=== PATIENT | male | born 1955 | race African-American/Black ===

== ENCOUNTER 2025-05-31 12:22 | Inpatient (IN) ==
--- NOTE | 2025-05-31 12:35 | Emergency Department Note ---
Impression & Plan Syncope, Syncope due to orthostatic hypotension, CLEMENTINE (acute kidney injury) ED Provider Note NAME: ALICIA POLANCO AGE: 70 SEX: M : 1955 ARRIVES VIA: Ambulance INFORMANT: Patient, EMS ED PROVIDER(S): Manjeet Lanza DO CHIEF COMPLAINT: Syncope HPI: The patient is a 70-year-old male who presented to the emergency department by ambulance. The patient states he had a syncopal episode prior to arrival. He states he was eating a sandwich. He felt as though the sandwich may have gotten caught while he was trying to swallow up. He went to get a glass of water. After he got the glass of water he passed out. The patient went from a bending over position to a standing position when he got dizzy passed out. He denies having any chest pain. He denies having any nausea or vomiting. He has had no abdominal pain. Patient denies having any fever. He states he still feels off and does not feel back to his normal self. There is no reported seizure. Patient denies having any black or bloody stool. ROS: See above HPI for pertinent positives & negatives. A total of 10 systems reviewed and were otherwise negative. PAST MEDICAL HISTORY: See Below PAST SURGICAL HISTORY: See Below FAMILY HISTORY: See Below SOCIAL HISTORY: See Below HOME MEDICATIONS: See Below ALLERGIES: See Below VITALS: See Below PHYSICAL EXAMINATION: GENERAL: Patient is awake alert in no acute distress patient is resting comfortably and showing no signs of anxiety EYES: The conjunctivae are clear. The pupils are round and reactive. EARS, NOSE, MOUTH AND THROAT: The nose is without any evidence of any deformity. NECK: The neck is nontender and supple. RESPIRATORY: Normal respiratory effort is noted there is no evidence of wheezing rhonchi or rales CARDIOVASCULAR: Regular rate and rhythm noted there no murmurs rubs or gallops normal S1 normal S2. GASTROINTESTINAL: The abdomen is soft. Abdomen is nontender. MUSCULOSKELETAL/EXTREMITIES: There is no evidence of gross deformity full range of motion is noted in the hips and shoulders. SKIN: There is no obvious evidence of any rash. There are no petechiae, pallor or cyanosis noted. NEUROLOGIC: Patient is awake alert and oriented x3. Strength is symmetric. Speech was clear. There is no facial droop. MEDICAL DECISION MAKING: The patient is a 70-year-old male who presented to the emergency department for an evaluation after having a syncopal episode. The patient was treated with IV fluids in the emergency department. Vital signs did reveal orthostatic hypotension. I discussed the patient's laboratory and radiographic studies with him and his significant other. The patient admitted that he was not eating and drinking as well as usual. It is possible this represents some degree of dehydration. Given the patient's findings I do not feel that he would be a good candidate for outpatient management at this time. For this reason I [facility] have agreed to evaluate the patient in the emergency department for further management and disposition. Triage Nursing notes reviewed. Prior medical records reviewed Vital Signs: reviewed and remarkable for no significant abnormalities Differential diagnosis: Vasovagal event, dehydration, infection, hypoglycemia, electrolyte abnormalities, cardiac sources, intracerebral event, pulmonary embolism, seizure, toxicologic, neurologic, as well as other pathologies. ER treatment provided: See below Diagnostics interpreted by me: ECG: EKG was obtained in the emergency department. My interpretation is normal sinus rhythm at 88 bpm. There is no ectopy. There is no acute ST segment abnormalities noted. This was compared to a tracing from February 03, 2010. No changes were noted. Cardiac Monitoring: An order was placed for continuous cardiac monitoring. The monitor shows a rate of 85 bpm with sinus rhythm. Laboratory studies: As stated above and show below. Imaging studies: See below. Radiographic imaging was reviewed by myself Consultation(s): I discussed this case with Nikki who [facility]. Past Med/Surg History Problem List (Updated 05/31/25 @ 14:04 by Manjeet Lanza DO) CLEMENTINE (acute kidney injury) (Acute) Syncope due to orthostatic hypotension (Acute) Syncope (Acute) Medical History GERD (gastroesophageal reflux disease) Hypertension Social History Smoking Status: Never smoker Preferred Language: Korean Feels Safe at Home: Yes Allergies Allergies Allergy/AdvReac Type Severity Reaction Status Date / Time No Known Allergies Allergy Unverified 02/03/10 14:58 Home Meds Home Medications Medication Instructions Recorded Confirmed aspirin 81 mg tablet,delayed 81 mg PO DAILY ##0 02/05/10 05/31/25 release acetaminophen 500 mg tablet 500 mg PO UD PRN Pain ##0 04/05/11 05/31/25 cyclosporine 0.09 % eye drops in a 1 drp ophthalmic (eye) BID 05/31/25 05/31/25 dropperette (Cequa) eszopiclone 2 mg tablet (Lunesta) 2 mg PO DAILY 05/31/25 05/31/25 finasteride 5 mg tablet 5 mg PO QAM 05/31/25 05/31/25 gabapentin 300 mg capsule 600 mg PO BID 05/31/25 05/31/25 glipizide 5 mg tablet 5 mg PO DAILY 05/31/25 05/31/25 lifitegrast 5 % eye drops in a 1 drp ophthalmic (eye) Q12H 05/31/25 05/31/25 dropperette (Xiidra) linaclotide 145 mcg capsule 145 mcg PO DAILY 05/31/25 05/31/25 (Linzess) losartan 100 mg tablet 100 mg PO DAILY 05/31/25 05/31/25 nifedipine 60 mg tablet,extended 60 mg PO DAILY 05/31/25 05/31/25 release omeprazole 40 mg capsule,delayed 40 mg PO DAILY 05/31/25 05/31/25 release rosuvastatin 5 mg tablet 5 mg PO DAILY 05/31/25 05/31/25 sildenafil 50 mg tablet 5 - 10 mg PO DAILY PRN Erectile 05/31/25 05/31/25 Dysfunction tadalafil 5 mg tablet 5 mg PO DAILY 05/31/25 05/31/25 tamsulosin 0.4 mg capsule 0.4 mg PO DAILY 05/31/25 05/31/25 venlafaxine 150 mg 150 mg PO DAILY 05/31/25 05/31/25 capsule,extended release 24 hr Results & Data (ED) Vital Signs Vital Signs - 24 hr 05/31/25 12:30 05/31/25 12:32 05/31/25 12:32 Temperature 36.5 C Temperature Source Oral Pulse Rate - Lying 72 Pulse Rate - Sitting 75 Pulse Rate - Standing 81 Pulse Rate 86 85 Pulse Rhythm Regular Pulse Strength Normal Respiratory Rate 22 Respiratory Effort / Characteristics Spontaneous Respiratory Depth Normal Blood Pressure - Lying 97/56 L Blood Pressure - Sitting 98/59 L Blood Pressure- Standing 113/58 L Blood Pressure 108/61 Blood Pressure Mean 76 Blood Pressure Position Lying Pulse Oximetry 98 Oxygen Delivery Method Room Air Sepsis Recent Fever Within 48 Hours No Sepsis New/Unexplained Change in Mental Status N/A Sepsis Action Taken by Nursing No Action Required 05/31/25 12:40 Temperature Temperature Source Pulse Rate - Lying Pulse Rate - Sitting Pulse Rate - Standing Pulse Rate Pulse Rhythm Pulse Strength Respiratory Rate Respiratory Effort / Characteristics Respiratory Depth Blood Pressure - Lying Blood Pressure - Sitting Blood Pressure- Standing Blood Pressure Blood Pressure Mean Blood Pressure Position Pulse Oximetry 98 Oxygen Delivery Method Room Air Sepsis Recent Fever Within 48 Hours Sepsis New/Unexplained Change in Mental Status Sepsis Action Taken by Assisted Medications Current Medication List: was personally reviewed by me Laboratory Data Attestation: I reviewed the patient's lab results. 05/31/25 12:27 05/31/25 12:27 Lab Results 05/31/25 05/31/25 Range/Units 12:27 13:45 WBC 5.37 (4.8-10.8) K/ul RBC 4.57 L (4.70-6.10) M/uL Hgb 13.4 L (14.0-18.0) g/dL Hct 39.2 L (42.0-52.0) % MCV 85.8 (80.0-100.0) fL MCH 29.3 (25.0-34.0) pg MCHC 34.2 (32.0-36.0) g/dL RDW Std Deviation 43.1 (36.4-46.3) fL RDW Coeff of Ben 13.9 (11.5-14.5) % Plt Count 183 (130-400) K/uL MPV 10.7 (9.4-12.4) fL Immature Gran % (Auto) 0.2 % Neut % (Auto) 55.6 % Lymph % (Auto) 27.2 % [place] % (Auto) 10.6 % Eos % (Auto) 6.0 % Baso % (Auto) 0.4 % Neut # (Auto) 2.99 (1.40-6.50) K/uL Lymph # (Auto) 1.46 (1.20-3.40) K/uL [place] # (Auto) 0.57 (0.11-0.59) K/uL Eos # (Auto) 0.32 (0.00-0.50) K/uL Baso # (Auto) 0.02 (0.00-0.20) K/uL Immature Gran # (Auto) 0.01 (0.01-0.20) K/uL PT 11.0 (9.0-12.0) Seconds INR 1.0 (0.9-1.1) APTT 25 (21-31) Seconds PTT Ratio 0.9 Sodium 140 (136-145) mmol/L Potassium 4.1 (3.5-5.1) mmol/L Chloride 110 H (98-107) mmol/L Carbon Dioxide 22 (21-32) mmol/L Anion Gap 8 (3-11) BUN 17 (6-23) mg/dl Creatinine 1.94 H (0.6-1.4) mg/dl Est Cr Clr Drug Dosing 42.6 ml/min eGFR 36.33 BUN/Creatinine Ratio 8.8 L (10-20) Glucose 162 H (70-99(Fasting)) mg/dl Calcium 8.4 L (8.6-10.3) mg/dl Magnesium 2.2 (1.7-2.4) mg/dl Total Bilirubin 0.6 (0.2-1.0) mg/dl AST 17 (13-39) U/L ALT 17 (7-52) U/L Alkaline Phosphatase 68 (34-104) U/L Total Creatine Kinase 176 (30-223) U/L Troponin I High Sens 6.0 (0-20) pg/ml Total Protein 7.1 (6.0-8.3) gm/dl Albumin 4.2 (3.4-5.0) gm/dl Globulin 2.9 (2.5-4.0) gm/dl Albumin/Globulin Ratio 1.4 (0.9-2) Lipase 34 (11-82) U/L TSH 1.086 (0.300-4.500) uIu/ml Urine Color Yellow Urine Appearance Clear (Clear) Urine pH 7.5 (4.5-7.5) Ur Specific [place] 1.015 (1.000-1.030) Urine Protein Negative (Negative) Urine Glucose (UA) Negative (Negative) Urine Ketones Trace H (Negative) Urine Blood Negative (Negative) Urine Nitrite Negative (Negative) Urine Bilirubin Negative (Negative) Urine Urobilinogen Negative (Negative) Ur Leukocyte Esterase Negative (Negative) Urine Comment Administered Medications Discontinued Medications Sodium Chloride (Nss) 500 mls @ 999 mls/hr IV .Q31M MAXI Stop: 05/31/25 13:15 Last Infusion: 05/31/25 13:54 Dose: Infused Documented By: [facility] [place] Admin: 05/31/25 12:46 Dose: 999 mls/hr Documented By: [facility] [place] Sodium Chloride (Nss) 500 mls @ 999 mls/hr IV .Q31M ONE Stop: 05/31/25 13:40 Last Admin: 05/31/25 13:55 Dose: 999 mls/hr Documented By: [facility] [place] Imaging Data Attestation: I personally reviewed and interpreted this imaging study as follows: My Impression: 1 view chest x-ray was obtained in the emergency department. My interpretation is no free air or definite infiltrate, final report below. Radiologist's Impression: Cervical Spine CT 05/31/25 12:32 Exam: CT of the cervical spine. Exam reason: Syncope. Technique: Multiple transvaginal images of the cervical spine were obtained and also reconstructed in coronal and sagittal planes. Findings: There is no evidence of acute fracture or subluxation. Alignment is normal. There are large bridging osteophytes noted at multiple contiguous levels extending from at least C2-C6. These are present both anteriorly and posteriorly. The dens is in satisfactory alignment with C1 and the lateral masses are unremarkable. Impression: 1. No acute abnormalities in the cervical spine. 2. Multiple large bridging osteophytes noted throughout the cervical spine. This is concerning for diffuse idiopathic skeletal hyperostosis. Electronically signed by Lobo Latham 05-31-2025 13:35 PM Chest X-Ray 05/31/25 12:32 Exam: AP Portable Chest Exam reason: Syncope Comparison: No prior examinations available for comparison Technique: A single AP portable view of the chest was obtained Findings: The lungs are well-expanded. No focal areas of consolidation are identified. The cardiac and mediastinal silhouettes are within normal limits. There is no pneumothorax and no acute bony abnormalities are seen. Impression: No acute cardiopulmonary abnormalities Electronically signed by Lobo Latham 05-31-2025 13:[address] 05/31/25 12:32 Exam: CT of the head without contrast. Exam reason: Syncope. Comparison: No prior examinations available for comparison. Technique: Multiple sequential contiguous slices through the calvarium were obtained. Findings: The ventricles are normal in size and configuration. There is no evidence of intracranial hemorrhage, mass effect or midline shift. No acute bony abnormalities are identified. The sinuses are clear. The orbits and orbital contents are unremarkable. Impression: 1. No evidence of acute intracranial abnormality. Electronically signed by Yeison Lobo 05-31-2025 13:34 PM Discharge Plan Visit Data Chief Complaint: Syncope Stated Complaint: SYNCOPE ED Provider: Manjeet Lanza Discharge Problem: Syncope, Syncope due to orthostatic hypotension, CLEMENTINE (acute kidney injury) Patient Disposition: Being Evaluated by Hospitalist Condition: Fair Forms Stand Alone Forms: My [facility] [place] [employer] Prescriptions Prescriptions: No Action aspirin [Aspir-81] 81 mg Tablet,Delayed Release (Dr/Ec) 81 mg PO DAILY Qty: 0 Patient Comments: 05/31- otc unable to verify acetaminophen [Tylenol Ex Str Rapid Release] 500 mg Tablet 500 mg PO UD PRN (Reason: Pain) Qty: 0 Patient Comments: 05/31- otc unable to verify sildenafil 50 mg tablet 5 - 10 mg PO DAILY PRN (Reason: Erectile Dysfunction) venlafaxine 150 mg capsule,extended release 24hr 150 mg PO DAILY omeprazole 40 mg capsule,delayed release(DR/EC) 40 mg PO DAILY tamsulosin 0.4 mg capsule 0.4 mg PO DAILY gabapentin 300 mg capsule 600 mg PO BID nifedipine 60 mg tablet extended release 60 mg PO DAILY losartan 100 mg tablet 100 mg PO DAILY finasteride 5 mg tablet 5 mg PO QAM glipizide 5 mg tablet 5 mg PO DAILY rosuvastatin 5 mg tablet 5 mg PO DAILY tadalafil 5 mg tablet 5 mg PO DAILY eszopiclone [Lunesta] 2 mg tablet 2 mg PO DAILY Linzess 145 mcg capsule 145 mcg PO DAILY Xiidra 5 % dropperette 1 drp ophthalmic (eye) Q12H Patient Comments: last filled 02/12 90 day supply Cequa 0.09 % dropperette 1 drp ophthalmic (eye) BID Referrals Referrals: PCP,NO [Primary Care Provider] -
[2025-05-31 12:45] LABS: Hematocrit (blood only) 39.2 % (42.0-52.0); Hemoglobin 13.4 g/dL (14.0-18.0); Immature Granulocytes # (auto) 0.01 K/uL (0.01-0.20); Immature Granulocytes % (auto) 0.2 %; Mean Corpuscular Hemoglobin 29.3 pg (25.0-34.0); Mean Corpuscular Volume 85.8 fL (80.0-100.0); Platelet Count 183 K/uL (130-400); RDW Standard Deviation 43.1 fL (36.4-46.3); Red Blood Count 4.57 M/uL (4.70-6.10); White Blood Count 5.37 K/ul (4.8-10.8)
[2025-05-31] MEDS: SODIUM CHLORIDE 0.9% 500 ML IV SCH (12:46)
[2025-05-31 13:02] LABS: Alanine Aminotransferase 17.0 U/L (7-52); Albumin Globulin Ratio 1.4 (0.9-2); Albumin Level 4.2 gm/dl (3.4-5.0); Alkaline Phosphatase 68.0 U/L (34-104); Anion Gap 8.0 (3-11); Bilirubin,Total 0.6 mg/dl (0.2-1.0); Blood Urea Nitrogen 17.0 mg/dl (6-23); Calcium 8.4 mg/dl (8.6-10.3); Carbon Dioxide 22.0 mmol/L (21-32); Chloride 110.0 mmol/L (98-107); Creatine Kinase 176.0 U/L (30-223); Creatinine Clr Calc Pharmacy 42.6 ml/min; Globulin 2.9 gm/dl (2.5-4.0); Glucose 162.0 mg/dl (70-99(Fasting)); Lipase 34.0 U/L (11-82); Magnesium 2.2 mg/dl (1.7-2.4); Potassium 4.1 mmol/L (3.5-5.1); Sodium 140.0 mmol/L (136-145); Total Protein 7.1 gm/dl (6.0-8.3)
[2025-05-31 13:12] LABS: INR 1.0 (0.9-1.1); Partial Thromboplastin Time 25 Seconds (21-31); Prothrombin Time 11.0 Seconds (9.0-12.0)
[2025-05-31 13:19] LABS: Thyroid Stimulating Hormone 1.086 uIu/ml (0.300-4.500)
--- NOTE | 2025-05-31 13:27 | XRay Report ---
Exam: AP Portable Chest Exam reason: Syncope Comparison: No prior examinations available for comparison Technique: A single AP portable view of the chest was obtained Findings: The lungs are well-expanded. No focal areas of consolidation are identified. The cardiac and mediastinal silhouettes are within normal limits. There is no pneumothorax and no acute bony abnormalities are seen. Impression: No acute cardiopulmonary abnormalities Electronically signed by Lobo Latham 05-31-2025 13:26 PM
--- NOTE | 2025-05-31 13:34 | CT Scan Report ---
Exam: CT of the head without contrast. Exam reason: Syncope. Comparison: No prior examinations available for comparison. Technique: Multiple sequential contiguous slices through the calvarium were obtained. Findings: The ventricles are normal in size and configuration. There is no evidence of intracranial hemorrhage, mass effect or midline shift. No acute bony abnormalities are identified. The sinuses are clear. The orbits and orbital contents are unremarkable. Impression: 1. No evidence of acute intracranial abnormality. Electronically signed by Lobo Latham 05-31-2025 13:34 PM
--- NOTE | 2025-05-31 13:35 | CT Scan Report ---
Exam: CT of the cervical spine. Exam reason: Syncope. Technique: Multiple transvaginal images of the cervical spine were obtained and also reconstructed in coronal and sagittal planes. Findings: There is no evidence of acute fracture or subluxation. Alignment is normal. There are large bridging osteophytes noted at multiple contiguous levels extending from at least C2-C6. These are present both anteriorly and posteriorly. The dens is in satisfactory alignment with C1 and the lateral masses are unremarkable. Impression: 1. No acute abnormalities in the cervical spine. 2. Multiple large bridging osteophytes noted throughout the cervical spine. This is concerning for diffuse idiopathic skeletal hyperostosis. Electronically signed by Lobo Latham 05-31-2025 13:35 PM
[2025-05-31] MEDS: SODIUM CHLORIDE 0.9% 500 ML IV ONE (13:55)
[2025-05-31 13:58] LABS: Appearance Urine Clear (Clear); Glucose Urine UA Negative (Negative)
--- NOTE | 2025-05-31 14:10 | History & Physical Report ---
Date of Service May 31, 2025 Assessment & Plan (1) Syncope: (2) CKD (chronic kidney disease) stage 3, GFR 30-59 ml/min: (3) Hypertension: (4) T2DM (type 2 diabetes mellitus): (5) Obesity (BMI 30-39.9): (6) TRACEE treated with BiPAP: Plan This is a 70-year-old male who has significant past medical history of T2DM, HTN, TRACEE on BiPAP, GERD, gastroparesis, CKD stage III, BPH, polyneuropathy and obesity who presents to ED after episode of passing out prior to arrival. Pt reports symptomatic syncope with lightheaded/dizziness and feeling, "off," prior to event. He was standing at the refrigerator and went to go sit down on a chair when he fell forward onto the table. He believes he may have passed out for seconds. In ED work up unremarkable. Pt has CKD-3 with chronically elevated Cr ~ 1.8. In ED orthostatics were performed. His SBP was in the 90s lying and actually basil to 113 standing. He did have symptoms. He received 1.5L of fluids in ED. #Syncope ddx: orthostasis, autonomic neuropathy, hypovolemia, tachyarrythmia, bradyarrthmia admit to [facility] tele under observation monitor tele for any arrhythmias, if unremarkable will need ZIO arranged as outpt obtain echocardiogram hold antihypertensives losartan and nifedipine, pt does not monitor BP at home, and per chart review runs anywhere from 120s-150s systolic in clinic obtain orthostatics post IVF and BID TSH unremarkable --Head CT: unremarkable ECG NSR w/o ST ot T wave changes #CKD-3b baseline cr 1.8 follows [facility] bun/cr 17 and 1.94, clinically does not appear dry #T2DM a1c 6.2 12/2024 repeat a1c, hold glipizide diabetic diet and novolog SS #HTN hold losartan and nifedipine for now, monitor bp #TRACEE: chronic, stable, bipap at HS #Morbid obesity, BMI 35.6, encourage diet, lifestyle modifications #DVT ppx: SQ heparin FULL CODE PCP: Dr. Yudy Malik Dispo: admit to [facility] tele under obs Pt was seen and examined in collaboration with Dr. Arciniega, please see addendum I spent a total of 76 minutes coordinating, documenting and providing care for this patient excluding time spent in the performance of separately billed services or time spent by another provider/QHP. History of Present Illness Chief Complaint: passing out prior to arrival. Primary Care Provider: Yudy Malik This is a 70-year-old male who has significant past medical history of T2DM, HTN, TRACEE on BiPAP, GERD, gastroparesis, CKD stage III, BPH, polyneuropathy and obesity who presents to ED after episode of passing out prior to arrival. Patient's is at bedside who also helps elicit history. External chart review was performed. Pt was at the refrigerator getting some juice when his right arm started shaking. He states he felt, "off." The asked him if he was okay and he said, "I'm not sure." She asked him to come sit down and as he was making his way to the chair he fell forward into the table. Pt and believes he passed out for a few seconds. He recalls the events leading him to the table, but vaguely recalls anything after that. called 911. He does have hx of HTN and he did take his bp meds this a.m. He does not monitor his blood pressure on a regular basis. He reports prior to the event feeling dizzy/lightheaded. He has had similar episodes in the past where he would feel lightheaded and it would resolve immediately upon sitting down. He drinks ~ 2L of fluid a day. He has been taking his medicine. No recent weight loss, gain or illness noted. He denies f/c/s, chest pain, sob, palpitations, n/v/d, abd pain. He has issues with chronic constipation. Overall he has a good appetite. In ED pt was hemodynamically stable. he did have orthostatic vitals performed which his blood pressure was 97/56 lying in 113/58 standing. His heart rate fluctuated between 70 and 80. He received IVF and observation was recommended. Allergies Allergy/AdvReac Type Severity Reaction Status Date / Time No Known Allergies Allergy Unverified 02/03/10 14:58 Home Medications Medication Instructions Recorded Confirmed Type aspirin 81 mg tablet,delayed 81 mg PO DAILY ##0 02/05/10 05/31/25 History release acetaminophen 500 mg tablet 500 mg PO UD PRN Pain ##0 04/05/11 05/31/25 History albuterol sulfate 90 mcg/actuation 1 inh inhalation Q4H 05/31/25 05/31/25 History breath activated powder inhaler,sensor cholecalciferol (vitamin D3) 25 25 mcg PO DAILY 05/31/25 05/31/25 History mcg (1,000 unit) capsule (Vitamin D3) cyclosporine 0.09 % eye drops in a 1 drp ophthalmic (eye) BID 05/31/25 05/31/25 History dropperette (Cequa) eszopiclone 2 mg tablet (Lunesta) 2 mg PO HS 05/31/25 05/31/25 History finasteride 5 mg tablet 5 mg PO QAM 05/31/25 05/31/25 History fluticasone propionate 50 1 spray intranasal BID 05/31/25 05/31/25 History mcg/actuation nasal spray,suspension gabapentin 300 mg capsule 300 mg PO DAILY 05/31/25 05/31/25 History gabapentin 300 mg capsule 600 mg PO HS 05/31/25 05/31/25 History glipizide 5 mg tablet 5 mg PO DAILY 05/31/25 05/31/25 History linaclotide 145 mcg capsule 145 mcg PO DAILY 05/31/25 05/31/25 History (Linzess) losartan 100 mg tablet 100 mg PO DAILY 05/31/25 05/31/25 History nifedipine 60 mg tablet,extended 60 mg PO DAILY 05/31/25 05/31/25 History release omega 7-eal-rvk-fish oil 60 mg-90 1 cap PO DAILY 05/31/25 05/31/25 History mg-500 mg capsule (Fish Oil) omeprazole 40 mg capsule,delayed 40 mg PO DAILY 05/31/25 05/31/25 History release rosuvastatin 5 mg tablet 5 mg PO DAILY 05/31/25 05/31/25 History sildenafil 50 mg tablet 5 - 10 mg PO DAILY PRN Erectile 05/31/25 05/31/25 History Dysfunction tadalafil 5 mg tablet 5 mg PO DAILY 05/31/25 05/31/25 History tamsulosin 0.4 mg capsule 0.4 mg PO DAILY 05/31/25 05/31/25 History venlafaxine 150 mg 150 mg PO DAILY 05/31/25 05/31/25 History capsule,extended release 24 hr Past Med/Surg History Problem List (Updated 05/31/25 @ 15:21 by Nikki Acosta PA-C) CLEMENTINE (acute kidney injury) (Acute) Syncope due to orthostatic hypotension (Acute) Syncope (Acute) Medical History (Updated 05/31/25 @ 15:21 by Nikki Acosta PA-C) TRACEE treated with BiPAP Obesity (BMI 30-39.9) T2DM (type 2 diabetes mellitus) CKD (chronic kidney disease) stage 3, GFR 30-59 ml/min GERD (gastroesophageal reflux disease) Hypertension Surgical History (Updated 05/31/25 @ 14:56 by Nikki Acosta PA-C) Hx of hernia repair Hx of partial adrenalectomy left 2008 Family History Father Cancer Mother Stroke Social History (Updated 05/31/25 @ 14:56 by Nikki Acosta PA-C) Smoking Status: Never smoker Hx Alcohol Use: No Hx Substance Use: No Preferred Language: Mexican marital status: Current Living Situation: Spouse Feels Safe at Home: Yes Review of Systems Review of Systems: All systems reviewed & are unremarkable except as noted in HPI & below Physical Exam Physical Exam: Constitutional: WD/WN, vitals as above, NAD, sitting up in bed, pleasant, conversing easily Head: Normocephalic, Atraumatic Eyes: conjunctivae normal, anicteric sclerae, periorbital soft tissue edema ENMT: external ear and nose normal, oropharynx normal Neck: trachea midline, no thyromegaly normal visual inspection Respiratory: CTAB, no W/R/R, normal inspection, no accessory muscle use Cardiovascular: RRR, no murmur, no edema Chest: normal inspection of chest Abdomen: S, NT, ND, +BS x 4 Musculoskeletal: no cyanosis or clubbing, extremities AROM x 4 Skin: no rashes, warm and dry normal turgor Neurologic: no face palsy, no dysarthria CN's II-XI intact bilaterally and moves all extremities Psychiatric: A+Ox3, euthymic affect Results & Data Results & Data Vital Signs (Past 12 Hours) Vital Signs Temp Pulse Resp BP Pulse Ox O2 Del Method 05/31/25 12:40 98 Room Air 05/31/25 12:32 85 05/31/25 12:30 36.5 C 86 22 108/61 98 Room Air Laboratory Results I have independently reviewed and interpreted patient's admitting labs including CBC, CMP, PTT, PT/INR, mag and troponin. Diagnostic Findings Cervical Spine CT 05/31/25 12:32 Exam: CT of the cervical spine. Exam reason: Syncope. Technique: Multiple transvaginal images of the cervical spine were obtained and also reconstructed in coronal and sagittal planes. Findings: There is no evidence of acute fracture or subluxation. Alignment is normal. There are large bridging osteophytes noted at multiple contiguous levels extending from at least C2-C6. These are present both anteriorly and posteriorly. The dens is in satisfactory alignment with C1 and the lateral masses are unremarkable. Impression: 1. No acute abnormalities in the cervical spine. 2. Multiple large bridging osteophytes noted throughout the cervical spine. This is concerning for diffuse idiopathic skeletal hyperostosis. Electronically signed by Lobo Latham 05-31-2025 13:35 PM Chest X-Ray 05/31/25 12:32 Exam: AP Portable Chest Exam reason: Syncope Comparison: No prior examinations available for comparison Technique: A single AP portable view of the chest was obtained Findings: The lungs are well-expanded. No focal areas of consolidation are identified. The cardiac and mediastinal silhouettes are within normal limits. There is no pneumothorax and no acute bony abnormalities are seen. Impression: No acute cardiopulmonary abnormalities Electronically signed by Lobo Latham 05-31-2025 13:[address] 05/31/25 12:32 Exam: CT of the head without contrast. Exam reason: Syncope. Comparison: No prior examinations available for comparison. Technique: Multiple sequential contiguous slices through the calvarium were obtained. Findings: The ventricles are normal in size and configuration. There is no evidence of intracranial hemorrhage, mass effect or midline shift. No acute bony abnormalities are identified. The sinuses are clear. The orbits and orbital contents are unremarkable. Impression: 1. No evidence of acute intracranial abnormality. Electronically signed by Lobo Latham 05-31-2025 13:34 PM Medications Administered Medication List Discontinued Medications Sodium Chloride (Nss) 500 mls @ 999 mls/hr IV .Q31M MAXI Stop: 05/31/25 13:15 Last Infusion: 05/31/25 13:54 Dose: Infused Documented By: [facility] [place] Admin: 05/31/25 12:46 Dose: 999 mls/hr Documented By: lino Sodium Chloride (Nss) 500 mls @ 999 mls/hr IV .Q31M ONE Stop: 05/31/25 13:40 Last Admin: 05/31/25 13:55 Dose: 999 mls/hr Documented By: gina ECG Additional Comments: I have independently reviewed and interpreted patient's admitting EKG which revealed: 88, NSR, no st or t wave changes COVID-19 Results Results COVID-19 Adm Lab Results: 2 RBC 4.57 M/uL (4.70-6.10) L 05/31/25 WBC 5.37 K/ul (4.8-10.8) 05/31/25 Hgb 13.4 g/dL (14.0-18.0) L 05/31/25 Hct 39.2 % (42.0-52.0) L 05/31/25 Plt Count 183 K/uL (130-400) 05/31/25 Neutrophils (%) (Auto) 55.6 % 05/31/25 Lymphocytes (%) (Auto) 27.2 % 05/31/25 Monocytes # (Auto) 0.57 K/uL (0.11-0.59) 05/31/25 Eosinophils # (Auto) 0.32 K/uL (0.00-0.50) 05/31/25 Immature Granulocyte % (Auto) 0.2 % 05/31/25 Neutrophils # (Auto) 2.99 K/uL (1.40-6.50) 05/31/25 Lymphocytes # (Auto) 1.46 K/uL (1.20-3.40) 05/31/25 Monocytes # (Auto) 0.57 K/uL (0.11-0.59) 05/31/25 Eosinophils # (Auto) 0.32 K/uL (0.00-0.50) 05/31/25 Basophils # (Auto) 0.02 K/uL (0.00-0.20) 05/31/25 Immature Granulocyte # (Auto) 0.01 K/uL (0.01-0.20) 5 Na 140 mmol/L (136-145) 05/31/25 K 4.1 mmol/L (3.5-5.1) 05/31/25 Cl 110 mmol/L (98-107) H 05/31/25 CO2 22 mmol/L (21-32) 05/31/25 Anion Gap 8 (3-11) 05/31/25 BUN 17 mg/dl (6-23) 05/31/25 Creatinine 1.94 mg/dl (0.6-1.4) H 05/31/25 BUN/Creatinine Ratio 8.8 (10-20) L 05/31/25 Glucose Level 162 mg/dl (70-99(Fasting)) H 05/31/25 Ca 8.4 mg/dl (8.6-10.3) L 05/31/25 Total Bilirubin 0.6 mg/dl (0.2-1.0) 05/31/25 AST/SGOT 17 U/L (13-39) 05/31/25 ALT/SGPT 17 U/L (7-52) 05/31/25 Alkaline Phosphatase 68 U/L (34-104) 05/31/25 Total Protein 7.1 gm/dl (6.0-8.3) 05/31/25 Albumin 4.2 gm/dl (3.4-5.0) 05/31/25 Globulin 2.9 gm/dl (2.5-4.0) 05/31/25 Albumin/Globulin Ratio 1.4 (0.9-2) 05/31/25 Total CK 176 U/L (30-223) 05/31/25 PTT 25 Seconds (21-31) 05/31/25 INR 1.0 (0.9-1.1) 05/31/25 Chest X-Ray 05/31/25 Code Status & VTE Plan Code Status FULL CODE Supervising Physician Co-Signing Physician Notes Attending addendum: The patient was seen and examined in the emergency room in presence of the family members He presented with a syncopal episode while in the kitchen and checking orange j uice before drinking it. Following bending down to pick the Of the bottle he suffered a syncopal episode Says that he lost consciousness for few seconds No injury and has been feeling much better since then Feels occasional dizzy with ambulation but no significant neuropathy from diabetes On examination Lying in bed without any acute distress Hemodynamically stable Both eyelids upper and lower on both sides look puffy indicating chronic kidney disease Chest was clear to auscultate bilaterally HeartS1-S2, regular Abdomenbenign Extremitiesno edema CNSalert, awake and oriented x 3 and no focal sensory or motor deficit appreciated His admission labs, EKG and imaging studies reviewed Kidney functions include minimally impaired but not worse compared with outpatient CT cervical spine showed multiple large bridging osteophytes throughout the cervical spine Likely has postural hypotension and is worse with mild dehydration Will get orthostatic vitals and also echocardiogram and give a small amount of intravenous fluid Agree with assessment and plan as outlined above by Deena Ribera PA-C and take the full responsibility of care in the hospital Total time taken to see the patient, examining him, reviewing chart and labs and planning management was [address] Netta Arciniega
[2025-05-31] MEDS: SODIUM CHLORIDE 0.9% 1,000 ML IV SCH (15:44)
[2025-05-31] MEDS ORDERED: CARBOHYDRATES FOR HYPOGLYCEMIA PO PRN (16:58)
[2025-05-31] MEDS ORDERED: DEXTROSE 50% 50 ML SYRINGE IV PRN (16:58)
[2025-05-31] MEDS ORDERED: GLUCOSE 40% GEL 15 GM TUBE PO PRN (16:58)
[2025-05-31] MEDS ORDERED: GLUCAGON FOR INJ 1 MG VIAL SQ PRN (16:58)
[2025-05-31] MEDS ORDERED: ACETAMINOPHEN 325 MG TAB PO PRN (16:58)
[2025-05-31] MEDS ORDERED: POLYETHYLENE (MIRALAX) 17 GM PACK PO PRN (16:58)
[2025-05-31] MEDS ORDERED: ALUMINUM/MAGNESIUM SUSP 30 ML UDC PO PRN (16:58)
[2025-05-31] MEDS ORDERED: MELATONIN 3 MG TAB PO PRN (16:58)
[2025-05-31] MEDS ORDERED: ONDANSETRON INJ 2 MG/ML 2 ML VIAL IV PRN (16:58)
[2025-05-31] MEDS ORDERED: GLUCOSE 10 TAB/TUBE PO PRN (16:58)
[2025-05-31] MEDS ORDERED: ARTIFICIAL TEARS OP PRN (17:35)
[2025-05-31] MEDS: INSULIN ASPART PER UNIT CHARGE SC SCH (17:53)
--- NOTE | 2025-05-31 20:18 | Electrocardiogram Report ---
Test Reason : Blood Pressure : */* mmHG Vent. Rate : 88 BPM Atrial Rate : 88 BPM P-R Int : 112 ms QRS Dur : 82 ms QT Int : 388 ms P-R-T Axes : 43 -41 26 degrees QTcB Int : 469 ms Normal sinus rhythm Left axis deviation RSR' or QR pattern in V1 suggests right ventricular conduction delay Nonspecific T wave abnormality Abnormal ECG When compared with ECG of 03-Feb-2010 15:50, leftward axis now present Confirmed by Kassie Baer (Ruth) on 05/31/2025 8:17:46 PM Referred By: REFERRED SELF Confirmed By: Kassie Baer
[2025-05-31] MEDS: HEPARIN SOD 5,000 UNIT/0.5 ML VIAL SQ SCH (21:25)
[2025-05-31] MEDS: ESZOPICLONE 1 MG TAB PO SCH (21:25)
[2025-05-31] MEDS: FLUTICASONE PROPIONATE NA SPR 16 GM BTL NAE SCH (21:26)
[2025-05-31] MEDS: GABAPENTIN 300 MG CAP PO SCH (21:26)
[2025-06-01 06:51] LABS: Hematocrit (blood only) 36.7 % (42.0-52.0); Hemoglobin 12.5 g/dL (14.0-18.0); Mean Corpuscular Hemoglobin 30.0 pg (25.0-34.0); Mean Corpuscular Volume 88.0 fL (80.0-100.0); Platelet Count 171 K/uL (130-400); RDW Standard Deviation 44.7 fL (36.4-46.3); Red Blood Count 4.17 M/uL (4.70-6.10); White Blood Count 5.07 K/ul (4.8-10.8)
[2025-06-01 07:20] LABS: Anion Gap 7.0 (3-11); Blood Urea Nitrogen 15.0 mg/dl (6-23); Calcium 8.2 mg/dl (8.6-10.3); Carbon Dioxide 26.0 mmol/L (21-32); Chloride 109.0 mmol/L (98-107); Cholesterol 127.0 mg/dl (0-200); Creatinine Clr Calc Pharmacy 47.7 ml/min; Glucose 102.0 mg/dl (70-99(Fasting)); HDL Cholesterol 39.0 mg/dl; Potassium 4.0 mmol/L (3.5-5.1); Sodium 142.0 mmol/L (136-145); Triglycerides 166.0 mg/dl (0-150)
[2025-06-01 07:43] LABS: Hemoglobin A1C 6.0 % (4.5-5.6)
[2025-06-01] MEDS: FINASTERIDE 5 MG TAB PO SCH (08:24)
[2025-06-01] MEDS: ROSUVASTATIN CALCIUM 5 MG TAB PO SCH (08:25)
[2025-06-01] MEDS: ASPIRIN 81 MG ECTAB PO SCH (08:25)
[2025-06-01] MEDS: GABAPENTIN 300 MG CAP PO SCH (08:25)
[2025-06-01] MEDS: CHOLECALCIFEROL 25 MCG (1000 UNITS) TAB PO SCH (08:25)
[2025-06-01] MEDS: LINACLOTIDE 145 MCG CAPSULE PO SCH (08:25)
[2025-06-01] MEDS: VENLAFAXINE HCL XR 150 MG CAPXR PO SCH (08:26)
[2025-06-01] MEDS: TAMSULOSIN HCL 0.4 MG CAP PO SCH (08:26)
[2025-06-01] MEDS ORDERED: NIFEdipine EXTENDED REL 30 MG TABCR PO SCH (11:45)
--- NOTE | 2025-06-01 12:50 | Electrocardiogram Report ---
Test Reason : Blood Pressure : */* mmHG Vent. Rate : 63 BPM Atrial Rate : 63 BPM P-R Int : 122 ms QRS Dur : 92 ms QT Int : 400 ms P-R-T Axes : 27 -41 -8 degrees QTcB Int : 409 ms Normal sinus rhythm Left axis deviation Nonspecific ST abnormality Abnormal ECG When compared with ECG of 31-May-2025 12:28, QT has shortened Confirmed by Phillip Sparks ([id number]) on 06/01/2025 12:50:23 PM Referred By: REFERRED SELF Confirmed By: Phillip Sparks
[2025-06-01] MEDS: LOSARTAN POTASSIUM 50 MG TAB PO SCH ×2 (13:00→13:18)
--- NOTE | 2025-06-01 16:07 | Hospitalist Progress Note ---
Date of Service June 01, 2025 Assessment & Plan (1) Syncope: (2) CKD (chronic kidney disease) stage 3, GFR 30-59 ml/min: (3) Hypertension: (4) T2DM (type 2 diabetes mellitus): (5) Obesity (BMI 30-39.9): (6) TRACEE treated with BiPAP: Plan 70-year-old male who has significant past medical history of T2DM, HTN, TRACEE on BiPAP, GERD, gastroparesis, CKD stage III, BPH, polyneuropathy and obesity who presents to ED after syncopal episode In ED work up unremarkable. #Syncope DDx: orthostasis, autonomic neuropathy, hypovolemia, tachyarrythmia, bradyarrthmia TSH normal 1.[address]: No acute abnormalities ECG NSR w/o ST ot T wave changes Orthostatic vitals today - Supine 154/86, Sitting 138/83, Standing 145/88 There is some drop in BP from supine to sitting Patient is feeling better today Supine BP was reported to be low on admission and BP meds were held Got some IVF BP trending up today. Resumed his losartan at lower dose of 50mg. Nifedipine still on hold Will monitor for today Will follow up TTE Continue tele monitoring PCP can arrange zio patch outpatient #CKD-3b Baseline Cr 1.8 Follows [facility] Cr is 1.7 today #T2DM Hba1c 6.2 12/2024 Hba1c is 6 today [employer] glipizide on hold Continue diabetic diet and novolog SS #HTN BP meds as above Monitor #TRACEE: Chronic, stable Continue CPAP/BIPAP HS #Morbid obesity, BMI 35.6, Encourage Lifestyle modifications DVT ppx: SQ heparin FULL CODE Updated at bedside I spent a total of 45 minutes coordinating, documenting and providing care for this patient excluding time spent in performance of separately billed services Admission and Anticipated Discharge Date Admission Date: May 31, 2025 Subjective Patient seen and examined Reported episode of dizziness and passing out at home Reports occasional episode of dizziness at home or at work in the past. Denied chest pain, SOB Denied any focal neurological deficits Denied any other complaints Takes his BP meds in the AM Physical Exam Constitutional: + well hydrated; no acute distress Eyes: PERRL, conjunctivae normal, anicteric sclerae ENMT: external ear and nose normal, oropharynx normal Respiratory: normal respiratory effort, lungs clear to auscultation Cardiovascular: Rate/Rhythm: regular rate and regular rhythm Gastrointestinal (Abdomen): normal bowel sounds, soft, nontender, no hepatosplenomegaly Musculoskeletal: no cyanosis or clubbing, extremities motor strength 5/5 Neurologic: PERRL, EOMI, accommodation nl, no face palsy, no dysarthria Psychiatric: A+Ox3, euthymic affect Results & Data Results & Data Vital Signs (Past 12 Hours) Vital Signs Temp Pulse Pulse Resp BP Pulse Ox O2 Del Method 06/01/25 15:43 37.1 C 70 20 165/83 H 98 Room Air 06/01/25 11:24 36.6 C 71 154/82 H 98 Room Air 06/01/25 07:29 37 C 65 154/86 H 97 Room Air 06/01/25 07:25 71 Laboratory Results Abnormal lab results 05/31/25 06/01/25 06/01/25 Range/Units 16:58 05:43 12:08 RBC 4.17 L (4.70-6.10) M/uL Hgb 12.5 L (14.0-18.0) g/dL Hct 36.7 L (42.0-52.0) % Chloride 109 H (98-107) mmol/L Creatinine 1.70 H (0.6-1.4) mg/dl BUN/Creatinine Ratio 8.8 L (10-20) Glucose 102 H (70-99(Fasting)) mg/dl POC Glucose 107 H 103 H (70-99) mg/dl Hemoglobin A1c 6.0 H (4.5-5.6) % Calcium 8.2 L (8.6-10.3) mg/dl Triglycerides 166 H (0-150) mg/dl VLDL Cholesterol, Calc 33 H (0-30) mg/dl
--- NOTE | 2025-06-01 16:14 | XCELERA ---
[id number]
[2025-06-02 04:12] VITALS: O2SAT 99
[2025-06-02 07:49] VITALS: BP 137/83; RESP 18; TEMP 97.9
[2025-06-02] MEDS: LOSARTAN POTASSIUM 50 MG TAB PO SCH (08:12)
--- NOTE | 2025-06-02 08:31 | Discharge Summary ---
Date of Service June 02, 2025 Admission HPI Per Admitting Provider This is a 70-year-old male who has significant past medical history of T2DM, HTN, TRACEE on BiPAP, GERD, gastroparesis, CKD stage III, BPH, polyneuropathy and obesity who presents to ED after episode of passing out prior to arrival. Patient's is at bedside who also helps elicit history. External chart review was performed. Pt was at the refrigerator getting some juice when his right arm started shaking. He states he felt, "off." The asked him if he was okay and he said, "I'm not sure." She asked him to come sit down and as he was making his way to the chair he fell forward into the table. Pt and lesa elieves he passed out for a few seconds. He recalls the events leading him to the table, but vaguely recalls anything after that. called 911. He does have hx of HTN and he did take his bp meds this a.m. He does not monitor his blood pressure on a regular basis. He reports prior to the event feeling dizzy/lightheaded. He has had similar episodes in the past where he would feel lightheaded and it would resolve immediately upon sitting down. He drinks ~ 2L of fluid a day. He has been taking his medicine. No recent weight loss, gain or illness noted. He denies f/c/s, chest pain, sob, palpitations, n/v/d, abd pain. He has issues with chronic constipation. Overall he has a good appetite. In ED pt was hemodynamically stable. he did have orthostatic vitals performed which his blood pressure was 97/56 lying in 113/58 standing. His heart rate fluctuated between 70 and 80. He received IVF and observation was recommended. Admission Exam Per Admitting Provider Constitutional: WD/WN, vitals as above, NAD, sitting up in bed, pleasant, conversing easily Head: Normocephalic, Atraumatic Eyes: conjunctivae normal, anicteric sclerae, periorbital soft tissue edema ENMT: external ear and nose normal, oropharynx normal Neck: trachea midline, no thyromegaly normal visual inspection Respiratory: CTAB, no W/R/R, normal inspection, no accessory muscle use Cardiovascular: RRR, no murmur, no edema Chest: normal inspection of chest Abdomen: S, NT, ND, +BS x 4 Musculoskeletal: no cyanosis or clubbing, extremities AROM x 4 Skin: no rashes, warm and dry normal turgor Neurologic: no face palsy, no dysarthria CN's II-XI intact bilaterally and moves all extremities Psychiatric: A+Ox3, euthymic affect Principal Diagnosis Syncope Orthostasis Discharge Exam Constitutional + well hydrated; no acute distress Eyes PERRL, conjunctivae normal, anicteric sclerae ENMT external ear and nose normal, oropharynx normal Respiratory normal respiratory effort, lungs clear to auscultation Cardiovascular Rate/Rhythm: regular rate and regular rhythm Gastrointestinal (Abdomen) normal bowel sounds, soft, nontender, no hepatosplenomegaly Musculoskeletal no cyanosis or clubbing, extremities motor strength 5/5 Neurologic PERRL, EOMI, accommodation nl, no face palsy, no dysarthria Psychiatric A+Ox3, euthymic affect Discharge Data Allergies Allergy/AdvReac Type Severity Reaction Status Date / Time No Known Allergies Allergy Unverified 02/03/10 14:58 Consultations 05/31/25 14:05 ED Decision to Admit Stat Ordered Studies 05/31/25 12:32 CT cervical spine wo con Stat CT head/brain wo con Stat Hospital Course (1) Syncope: (2) CKD (chronic kidney disease) stage 3, GFR 30-59 ml/min: (3) Hypertension: (4) T2DM (type 2 diabetes mellitus): (5) Obesity (BMI 30-39.9): (6) TRACEE treated with BiPAP: Plan 70-year-old male who has significant past medical history of T2DM, HTN, TRACEE on BiPAP, GERD, gastroparesis, CKD stage III, BPH, polyneuropathy and obesity who presents to ED after syncopal episode In ED work up unremarkable. #Syncope DDx: orthostasis, autonomic neuropathy, hypovolemia, tachyarrythmia, bradyarrthmia TSH normal 1.[address]: No acute abnormalities ECG NSR w/o ST ot T wave changes Orthostatic vitals noted some drop in SBP from supine to sitting Got some IVF Antihypertensives were initially held but later Losartan was resumed BP is normal today TTE noted EF 55-60%, mild conc LVH, otherwise unremarkable Patient feeling better today Advised to hold Nifedipine for now and to keep a home BP log for PCP. If Nifedipine needs to be resumed, PCP to consider having one antihypertensives in AM and the other at nighttime PCP can arrange zio patch outpatient #CKD-3b Baseline Cr 1.8 Follows [facility] Stable #T2DM Hba1c 6.2 12/2024 Hba1c is 6 on 06/01/25 Continue CHEMIST INORGANIC glipizide o #HTN BP meds as above #TRACEE: Chronic, stable Continue CPAP/BIPAP HS #Morbid obesity, BMI 35.6, Encourage Lifestyle modifications Total Time Total Time Spent Total Time Spent (In Minutes): 40 Total Time Includes: Examination of the Patient, Discharge Planning and Medication Reconciliation Discharge Plan Discharge Items Patient Disposition: Home - Self-Care Reason For Visit: SYNCOPE Discharge Diagnosis: Syncope Orthostasis Condition on Discharge: Good Activity: Resume your previous activity Non-emergency contact: Primary Care Provider Call non-emergency contact if: you have any medication questions and your symptoms worsen Follow-up/Referrals: Yudy Malik MD [Primary Care Provider] - (Date & Time 06/09/2025 2:40 PM Provider: Yudy Malik MD General Internal Medicine [facility] ) Diet: Carb Consistent or DM2 and Heart Healthy Addtl Attending Provider Instructions: Mr Rossi You were hospitalized for the above listed diagnosis. You are being discharged home. Please stop taking Nifedipine for now. Keep home BP log as we discussed for your Primary Doctor. Your Primary Doctor will arrange Zio patch or holter monitor. It was a pleasure taking care of you Pending Studies at Discharge: No Stand-Alone Forms: My [facility] Control, Smoking Cessation Medications and DC Order Prescriptions: Continued aspirin 81 mg Tablet,Delayed Release (Dr/Ec) 81 mg PO DAILY Qty: 0 Patient Comments: 05/31- otc unable to verify acetaminophen 500 mg Tablet 500 mg PO UD PRN (Reason: Pain) Qty: 0 Patient Comments: 05/31- otc unable to verify sildenafil 50 mg tablet 5 - 10 mg PO DAILY PRN (Reason: Erectile Dysfunction) venlafaxine 150 mg capsule,extended release 24hr 150 mg PO DAILY omeprazole 40 mg capsule,delayed release(DR/EC) 40 mg PO DAILY tamsulosin 0.4 mg capsule 0.4 mg PO DAILY gabapentin 300 mg capsule 600 mg PO HS finasteride 5 mg tablet 5 mg PO QAM glipizide 5 mg tablet 5 mg PO DAILY rosuvastatin 5 mg tablet 5 mg PO DAILY tadalafil 5 mg tablet 5 mg PO DAILY eszopiclone [Lunesta] 2 mg tablet 2 mg PO HS Linzess 145 mcg capsule 145 mcg PO DAILY Cequa 0.09 % dropperette 1 drp ophthalmic (eye) BID gabapentin 300 mg capsule 300 mg PO DAILY cholecalciferol (vitamin D3) [Vitamin D3] 25 mcg (1,000 unit) Capsule 25 mcg PO DAILY omega 8-fto-cte-fish oil [Fish Oil] 60-90-500 mg Capsule 1 cap PO DAILY fluticasone propionate 50 mcg/actuation Odon,Suspension 1 spray INTRANASAL BID Rx Instructions: administer into each nostril albuterol sulfate 90 mcg/actuation Aero Powdr Breath Act W/Sensor 1 inh INHALATION Q4H losartan 100 mg tablet 100 mg PO DAILY Qty: 0 0RF Held nifedipine 60 mg tablet extended release 60 mg PO DAILY Hold Instructions: Until instructed Discharge Orders: Discharge Order (Routine); Ordered 06/02/25 Ordered By: Coco Wiseman/Other Patient Handouts: Hypoglycemia (Low Blood Sugar), Managing Type 2 Diabetes Admission Data Admit Date/Time: 06/01/25 16:08 Attending Provider: Coco Fabian I. Admit Provider: Sudheer Arciniega Primary Care Provider: Yudy Malik Other Providers: Sudheer Arciniega Other Interventions: Discharge Summary Assessment (RN) Last Done: 06/02/25 10:09
[2025-06-02 10:10] VITALS: PULSE 65
== END 2025-06-02 10:10 | disposition home or self-care (01) | DRG 312 ==
LOC: ED 12:22 → 2N 12:22 → SUATTDRO 14:22 → 2N 16:24